=== PATIENT | female | born 1960 | race Caucasian/White ===

== ENCOUNTER 2021-11-14 06:37 | Inpatient (IN) ==
--- NOTE | 2021-11-14 07:18 | Emergency Department Note ---
Impression & Plan Cervical radiculopathy, Neck pain, Paresthesia of right arm, Right arm weakness ED Provider Note CHIEF COMPLAINT: Neck pain HISTORY OF PRESENT ILLNESS: Breanna Zabala is a 61 year old female with history of anxiety, gout, osteopenia and leukemia s/p bone marrow transplant who presents to the Emergency Department for evaluation of increased pain to her right neck radiating down her right arm with associated weakness and numbness/tingling in her right forearm/hand which has been worsening over the past few days. The patient states that she has a known ruptured disc in her cervical spine and was supposed to have a posterior C5-6 anterior cervical discectomy and fusion with Dr. Downs last month, however this was cancelled due to the pandemic. The patient denies new injuries or increased physical activity that may have exacerbated her symptoms but states that it has become unbearable over the past few days. Currently, she rates her discomfort as a 10/10 which has not been relieved after taking Tylenol and ibuprofen. She has also used steroids in the past without relief. The patient was told that if her symptoms become worse, she should come to the Emergency Department for further evaluation with instructions to contact Dr. Downs, which she requests today. She otherwise den ies pain, paresthesias or weakness in her LUE or BLE. No saddle paresthesias or loss of continence of her bowels or bladder. No recent fevers/chills, chest pain, shortness of breath, abdominal pain, nausea, vomiting, diarrhea or urinary symptoms. REVIEW OF SYSTEMS: 10 systems were reviewed and were negative unless otherwise stated in HPI as above PHYSICAL EXAM: VITALS: Vitals are noted on the nurse's note and reviewed by myself. Vital signs stable. General: Resting in bedside chair, no acute distress Head/Eyes: Normocephalic, PERRL, EOMI Neck: Tender to palpation along the right perispinal region radiating into the right shoulder and arm. No specific midline or left sided tenderness. ROM intact but limited secondary to pain Resp: Good inspiratory effort on room air, lung sounds clear bilaterally CV: Regular rate and rhythm, peripheral pulses palpated Back: No midline or perispinal tenderness to the thoracic or lumbar spine Abd: Soft, non-tender MSK: Tender to palpation of the right arm, especially over the forearm and hand. Note numbness/tingling in right forearm/hand, ROM of the RUE limited secondary to pain and wrinkle chaser strength 4/5. No tenderness to palpation of the LUE or BLE, moving these extremities without apparent pain or difficulty Neuro: Awake, alert, interacting and answering questions appropriately Differential diagnosis includes cervical radiculopathy, disc injury, spinal cord injury, musculoskeletal among others were considered EMERGENCY DEPARTMENT COURSE: Physical exam and history were performed. Nursing triage notes, EMR, and medication list were personally reviewed. Patient appears to have increased pain to her right neck radiating down her right arm with associated weakness and numbness/tingling in her right forearm/hand which has been worsening over the past few days. The patient states that she has a known ruptured disc in her cervical spine and was supposed to have a posterior C5-6 anterior cervical discectomy and fusion with Dr. Downs last month, however this was cancelled due to the pandemic. She was instructed to come to the ED if her pain/symptoms became worse with instructions to contact Dr. Downs, hence her visit today. The patient was offered pain medication but declined and stated that she wanted to wait until we were able to contact Dr. Downs. She does not have imaging available to view within our system but she stated that she already had MRIs done prior to her pre-operative consult. I did contact Dr. Downs as requested and he agreed to admit the patient for ongoing management. The patient verbalized understanding and agreement with this treatment plan. The chart was completed utilizing [employer] Speech Voice Recognition Software. Grammatical errors, random word insertions, pronoun errors, and incomplete se ntences are an occasional consequence of this system due to software limitations, ambient noise, and hardware issues. Any formal questions or concerns about the content, text, or information contained within the body of this dictation should be directly addressed to the provider for clarification. Past Med/Surg History Medical History Anxiety Diverticular disease Gout History of leukemia dx 1983. chemo + radiation. h/o bone marrow transplant 1985. Osteopenia PONV (postoperative nausea and vomiting) Managed with IV meds Surgical History History of appendectomy History of biopsy History of bone marrow transplant History of cholecystectomy History of colonoscopy History of removal of Port-a-Cath History of sinus surgery History of tubal ligation History of vascular access device Family History Other No family history of adverse response to anesthesia Social History Smoking Status: Never smoker Second Hand Exposure: No; Hx Alcohol Use: Yes Hx Substance Use: No Preferred Language: Cypriot Communication Ability: Effective Pediatric Psychiatrist Required: No Beliefs That Will Affect Care: None Current Living Situation: Spouse Feels Safe at Home: Yes Assistive Devices: Glasses Allergies Allergies Allergy/AdvReac Type Severity Reaction Status Date / Time amoxicillin Allergy Rash Verified 11/14/21 08:01 Home Meds Home Medications Medication Instructions Recorded Confirmed allopurinol 100 mg tablet 100 mg PO HS 10/19/21 11/14/21 ibandronate 150 mg tablet (Boniva) 150 mg PO MO 10/19/21 11/14/21 venlafaxine 75 mg tablet 75 mg PO HS 10/19/21 11/14/21 cyanocobalamin (vitamin B-12) 1,000 mcg IM MO 11/14/21 11/14/21 1,000 mcg/mL injection solution Results & Data (ED) Vital Signs Vital Signs - 24 hr 11/14/21 06:40 11/14/21 08:00 11/14/21 09:49 Temperature 36.5 C Temperature Source Temporal Artery Scan Pulse Rate 100 H Pulse Rate [Finger] 87 86 Pulse Rhythm [Finger] Regular Respiratory Rate 18 14 14 Respiratory Effort / Characteristics Non-Labored Spontaneous Respiratory Depth Normal Normal Blood Pressure 143/86 H Blood Pressure [Left Arm] 117/79 113/75 Blood Pressure Mean 105 Blood Pressure Mean [Left Arm] 91 87 Pulse Oximetry 95 96 95 Oxygen Delivery Method Room Air Room Air Room Air Sepsis New/Unexplained Change in Mental Status N/A Sepsis Action Taken by Nursing No Action Required Discharge Plan Visit Data Chief Complaint: Neck Injury/Pain Stated Complaint: SEVERE PAIN IN NECK-NUMBNESS DOWN RT ARM,DE LA TORRE ED Provider: Han Carlson ED Midlevel Provider: Chetna Waller Discharge Problem: Cervical radiculopathy, Neck pain, Paresthesia of right arm, Right arm weakness Forms Stand Alone Forms: My [facility] Prescriptions Prescriptions: No Action cyanocobalamin (vitamin B-12) 1,000 mcg/mL solution 1,000 mcg IM MO RF: 0 venlafaxine 75 mg Tablet 75 mg PO HS RF: 0 allopurinol 100 mg Tablet 100 mg PO HS RF: 0 ibandronate [Boniva] 150 mg Tablet 150 mg PO MO RF: 0 Referrals Referrals: Rio Montoya [Primary Care Provider] -
--- NOTE | 2021-11-14 11:39 | History & Physical Report ---
Date of Service November 14, 2021 Assessment & Plan (1) Cervical radiculopathy: Plan: Patient has a known cervical disc herniation at the C5-6 level on the right. This is consistent with her symptoms. Unfortunately she is progressively worsening. Her prior ACDF at the C5-6 level has been canceled due to the pandemic. Due to her recent decline we are going to admit the patient. We will tentatively plan for ACDF at the C5-6 level tomorrow. N.p.o. after midnight. All questions have been answered in detail. History of Present Illness Chief Complaint: Worsening neck and right upper extremity pain and weakness Primary Care Provider: Rio Montoya Is a pleasant 61-year-old female who presents to the emergency room with progressively worsening neck pain rating down her right upper extremity including weakness. She is right-hand dominant. She reports this is a Workmen's Comp. injury stemming from June. She is currently working light duty. Symptoms extend throughout the entire right upper extremity into her thumb and index finger. Left upper extremity is asymptomatic. At home she has been alternating Tylenol and ibuprofen for pain control. Ambulates independently. She has trialed physical therapy which exacerbated her symptoms. She has previously been scheduled for ACDF C5-[address] Downs, but unfortunately this has been canceled due to the pandemic, bed availability. Allergies Allergy/AdvReac Type Severity Reaction Status Date / Time amoxicillin Allergy Rash Verified 11/14/21 08:01 Home Medications Medication Instructions Recorded Confirmed Type allopurinol 100 mg tablet 100 mg PO HS 10/19/21 11/14/21 History ibandronate 150 mg tablet (Boniva) 150 mg PO MO 10/19/21 11/14/21 History venlafaxine 75 mg tablet 75 mg PO HS 10/19/21 11/14/21 History cyanocobalamin (vitamin B-12) 1,000 mcg IM MO 11/14/21 11/14/21 History 1,000 mcg/mL injection solution Past Med/Surg History Medical History Anxiety Diverticular disease Gout History of leukemia dx 1983. chemo + radiation. h/o bone marrow transplant 1985. Osteopenia PONV (postoperative nausea and vomiting) Managed with IV meds Surgical History History of appendectomy History of biopsy History of bone marrow transplant History of cholecystectomy History of colonoscopy History of removal of Port-a-Cath History of sinus surgery History of tubal ligation History of vascular access device Family History Other No family history of adverse response to anesthesia Social History Smoking Status: Never smoker Second Hand Exposure: No; Hx Alcohol Use: Yes Hx Substance Use: No Preferred Language: Turkmen Communication Ability: Effective National Flatbed Truck Driver Required: No Beliefs That Will Affect Care: None Current Living Situation: Spouse Feels Safe at Home: Yes Assistive Devices: Glasses Review of Systems Review of Systems: All systems reviewed & are unremarkable except as noted in HPI & below Physical Exam Physical Exam: Patient seen in the emergency room room a 10 She sitting in a chair in no acute distress Cooperative with exam Alert and oriented x3 Seen in conjunction with her She ambulates with an independent steady gait No evidence of ankle clonus bilaterally No evidence of upper motor neuron signs She has positive Spurling's to the right Negative Lhermitte's Motor testing is a 3+ to 4/5 right hand cutter strength, wrist flexor, bicep and deltoid. Strength is intact left upper extremity finger intrinsics, wrist extensors, wrist flexors, biceps, triceps, deltoid Constitutional: WD/WN, vitals as above Eyes: normal visual angelo by confrontation ENMT: external ear and nose normal, oropharynx normal Neck: normal visual inspection Respiratory: normal respiratory effort Cardiovascular: Extremities: normal capillary refill Chest (Breasts): Chest: normal inspection of chest Gastrointestinal (Abdomen): Inspection/Auscultation: abdomen normal to inspection Musculoskeletal: Spine: + limited cervical ROM and + pain with cervical ROM Extremities: extremities normal to inspection Gait: normal gait Skin: no rashes, warm and dry Neurologic: normal touch/pain/proprioception, moves all extremities and + focal motor deficit Psychiatric: A+Ox3, euthymic affect Apperance: appropriately dressed and appropriately groomed Eye Contact: good eye contact Results & Data Results & Data ([facility]) Vital Signs (Past 12 Hours) Vital Signs Temp Pulse Pulse Resp BP BP Pulse Ox 11/14/21 09:49 86 14 113/75 95 11/14/21 08:00 87 14 117/79 96 11/14/21 06:40 36.5 C 100 H 18 143/86 H 95 Code Status & VTE Plan VTE Prophylaxis Plan VTE Prophylaxis will be ordered: Yes
[2021-11-14] MEDS ORDERED: HYDROmorphone INJ 0.5 MG/0.5 ML SYR IV STA (12:09)
[2021-11-14] MEDS ORDERED: HYDROmorphone INJ 0.5 MG/0.5 ML SYR IV PRN (13:13)
[2021-11-14] MEDS ORDERED: traMADol HCL 50 MG TABLET PO PRN (13:13)
[2021-11-14] MEDS ORDERED: ACETAMINOPHEN 500 MG TAB PO PRN (13:13)
[2021-11-14] MEDS ORDERED: HYDROmorphone INJ 1 MG/ML SYRINGE IV PRN (13:13)
[2021-11-14] MEDS ORDERED: ACETAMINOPHEN 1,000 MG/100 ML VIAL IV PRN (13:13)
[2021-11-14] MEDS ORDERED: NALOXONE HCL 0.4 MG/1 ML VIAL/CARP IV PRN (13:13)
[2021-11-14] MEDS ORDERED: ONDANSETRON INJ 2 MG/ML 2 ML VIAL IV PRN (13:13)
[2021-11-14] MEDS ORDERED: PROMETHAZINE HCL 12.5 MG in SODIUM CHLORIDE 0.9% 50 ML IV PRN (13:13)
[2021-11-14] MEDS ORDERED: LORazepam 0.5 MG/1 ML VIAL IV PRN (13:13)
[2021-11-14] MEDS ORDERED: oxyCODONE HCL IR 5 MG TAB (IMMEDIATE RELEASE) PO PRN (13:13)
[2021-11-14] MEDS ORDERED: LORazepam 0.5 MG TAB PO PRN (13:13)
[2021-11-14] MEDS ORDERED: ONDANSETRON 4 MG OD TAB PO PRN (13:13)
[2021-11-14] MEDS ORDERED: METOCLOPRAMIDE HCL INJ 5 MG/ML 2 ML VIAL IV PRN (13:13)
[2021-11-14] MEDS: LACTATED RINGER'S 1,000 ML IV SCH (13:27)
--- NOTE | 2021-11-14 14:58 | Hospitalist Consultation ---
Date of Consultation November 14, 2021 Assessment & Plan (1) Cervical radiculopathy: - patient with known ruptured cervical disc (C5-C6) with right hands paresthesias and weakness. She is right hand dominant and this is now affecting her ability to perform ADL's - plan is for surgical intervention tomorrow - in interim, recommend pain mgmt and perioperative abx therapy per primary team along - post-operatively, recommend: adequate pain control, I.S, PT/OT - preop labs review from 10/24 (mild hyperkalemia but otherwise normal metabolic panel, CBC, coag studies and negative covid test). Repeat CBC/CMP today - EKG/CXR reviewed (done 10/24) and unremarkable. 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 Medellin (my attending). Further orders as warranted. Thank you for allowing us to participate in the care of this patient History of Present Illness Reason for Consultation: Medical management Requesting Physician: Dr. Kristopher Downs Attending Physician: Kristopher Downs, DO History of Present Illness Mrs. Zabala is a 61-year-old white female with an underlying past medical history of mixed anxiety with depression, gouty arthritis, and leukemia in her early 20s s/p stem cell transplant. Has been in remission since. Has a known ruptured disc in her cervical spine for which she is seeing Dr. Downs for as an outpatient. Was to have surgical intervention last month that was canceled on account of the pandemic. In the interim, she has had increasing pain now with numbness down her right lower extremity and associated weakness. 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 In addition, she is unable to hold a coffee cup as she is right-hand dominant. Presented to the ED today given increased pain and decreased ability to perform ADLs. Subsequently hospitalized with plan for surgical intervention in the a.m. Did undergo preoperative work-up on 10/24. EKG reviewed showing normal sinus rhythm with a rate of 82 bpm. Normal axis. Normal EKG. CXR done at that time showing no acute cardiopulmonary process. Labs done at that time did show mild hyperkalemia of 5.2 but the rest of her metabolic panel was essentially unremarkable. CBC within normal limits. Coag panel normal. COVID test done today: negative. Patient denies a history of postoperative complications in the past. She denies a personal and/or family history of DVT, PE, blood dyscrasia. Has no known cardiac disease and is able to walk up and down steps and remains fairly active without CP, SOB, dizziness/lightheadedness. Allergies Allergy/AdvReac Type Severity Reaction Status Date / Time amoxicillin Allergy Rash Verified 11/14/21 08:01 Home Medications Medication Instructions Recorded Confirmed Type allopurinol 100 mg tablet 100 mg PO HS 10/19/21 11/14/21 History ibandronate 150 mg tablet (Boniva) 150 mg PO MO 10/19/21 11/14/21 History cyanocobalamin (vitamin B-12) 1,000 mcg IM MO 11/14/21 11/14/21 History 1,000 mcg/mL injection solution venlafaxine 75 mg capsule,extended 75 mg PO HS 11/14/21 11/14/21 History release 24 hr (Effexor XR) Patient History Medical History (Updated 11/14/21 @ 15:04 by Myla See PA-C) Anxiety Diverticular disease Gout History of leukemia dx 1983. chemo + radiation. h/o bone marrow transplant 1985. Osteopenia PONV (postoperative nausea and vomiting) Managed with IV meds Surgical History History of appendectomy History of biopsy History of bone marrow transplant History of cholecystectomy History of colonoscopy History of removal of Port-a-Cath History of sinus surgery History of tubal ligation History of vascular access device Family History Other No family history of adverse response to anesthesia Social History Smoking Status: Never smoker Second Hand Exposure: No; Hx Alcohol Use: No Hx Substance Use: No Preferred Language: Bengali Communication Ability: Effective Budget And Policy Analyst Required: No Beliefs That Will Affect Care: None Current Living Situation: Spouse Feels Safe at Home: Yes Assistive Devices: Glasses Review of Systems Review of Systems: All systems reviewed and are unremarkable except as noted in HPI and below Denies fevers, chills, headache, nasal congestion, sore throat, cough, chest pain, shortness of breath, palpitations, orthopnea, PND, abdominal pain, nausea, vomiting, diarrhea, constipation, dysuria, hematuria, frequency, back pain, joint pain or swelling, easy bruising or bleeding, skin lesions or rashes. Physical Exam Physical Exam: General: Resting comfortably in her hospital bed. Appears younger than stated age. NAD. HEENT: Head is AT/NC buccal mucosa is moist and pink Neck: No JVD. Negative hepatojugular reflex Cardiac: RRR without M/G/R Lungs: CTA without W/R/R Abdomen: Normoactive X4. Soft and nontender in all quadrants. Extremities: No peripheral clubbing cyanosis or edema. 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 Neuro: A&O X4 cranial nerves II through XII are grossly intact no focal neuro deficits Skin: No obvious skin lesions or rashes Psych: Appropriate affect pleasant and cooperative Results & Data Results & Data ([facility]) Vital Signs (Past 12 Hours) Vital Signs Temp Pulse Pulse Resp BP BP Pulse Ox 11/14/21 13:00 36.7 C 87 16 151/87 H 92 11/14/21 11:52 88 14 114/67 96 11/14/21 09:49 86 14 113/75 95 11/14/21 08:00 87 14 117/79 96 11/14/21 06:40 36.5 C 100 H 18 143/86 H 95 Laboratory Results reviewed labs and imaging from 10/24 PG Care Time/CCT Total # of Minutes Spent Total Time Spent with Patient: Total time spent is greater than 50% in coordination of care (as documented) at patient's floor/unit and/or counseling patient: Coding Level of Care Code 95101 Inpt Consult Level 4 Diagnoses Cervical radiculopathy M54.12 Anxiety and depression F41.9; F32.A Gout M10.9 History of leukemia Z85.6
[2021-11-14 15:38] LABS: Basophils # (auto) 0.04 K/uL (0-0.2); Basophils % (auto) 0.5 %; Eosinophils # (auto) 0.17 K/uL (0-0.5); Hematocrit (blood only) 44.3 % (37-47); Hemoglobin 14.8 g/dL (12.0-16.0); Immature Granulocytes # (auto) 0.01 K/uL (0.00-0.02); Immature Granulocytes % (auto) 0.1 %; Lymphocytes # (auto) 3.36 K/uL (1.2-3.4); Lymphocytes % (auto) 39.8 %; Mean Corpuscular Hemoglobin 30.8 pg (25-34); Mean Corpuscular Hgb Conc 33.4 g/dL (32-36); Mean Corpuscular Volume 92.1 fL (80-100); Mean Platelet Volume 9.6 fL (7.4-10.4); Monocytes # (auto) 0.53 K/uL (0.11-0.59); Monocytes % (auto) 6.3 %; Neutrophils # (auto) 4.33 K/uL (1.4-6.5); Neutrophils % (auto) 51.3 %; Platelet Count 243 K/uL (130-400); RDW Coefficient of Variation 14.7 % (11.5-14.5); RDW Standard Deviation 50.2 fL (36.4-46.3); Red Blood Count 4.81 M/uL (4.2-5.4); White Blood Count 8.44 K/uL (4.8-10.8)
[2021-11-14 16:03] LABS: Albumin Globulin Ratio 1.7 (0.9-2); Albumin Level 4.7 gm/dl (3.4-5.0); BUN Creatinine Ratio 24.4 (10-20); Bilirubin,Total 0.2 mg/dl (0.2-1.0); Calcium 9.9 mg/dl (8.5-10.1); Creatinine Clr Calc Pharmacy 68.5 ml/min; Est GFR (African American) 85.7 ml/min; Est GFR (Non-African American) 73.9 ml/min; Globulin 2.8 gm/dl (2.5-4.0); Potassium 4.3 mmol/L (3.5-5.1); Total Protein 7.5 gm/dl (6.0-8.3)
--- NOTE | 2021-11-14 18:29 | Anesthesiology Consultation ---
Date of Service November 14, 2021 Assessment & Plan (1) Encounter for pre-operative examination: Chart Review Chart Review: automobile brakes bonder initiated History Surgery Operation Date: 11/15/21 07:45 Proposed Procedures p C5-C6 Anterior Cervical Discectomy Fusion - Kristopher Downs DO Height/Weight Height: 5 ft 7 in Weight: 72.1 kg Allergies Allergy/AdvReac Type Severity Reaction Status Date / Time amoxicillin Allergy Rash Verified 11/14/21 08:01 Medications Home Medications Medication Instructions Recorded Confirmed Last Taken allopurinol 100 mg tablet 100 mg PO HS 10/19/21 11/14/21 11/13/21 ibandronate 150 mg tablet (Boniva) 150 mg PO MO 10/19/21 11/14/21 10/28/21 cyanocobalamin (vitamin B-12) 1,000 mcg IM MO 11/14/21 11/14/21 10/28/21 1,000 mcg/mL injection solution venlafaxine 75 mg capsule,extended 75 mg PO HS 11/14/21 11/14/21 Unknown release 24 hr (Effexor XR) Active Medications Generic Name Dose Route Start Last Admin Trade Name Freq PRN Reason Stop Dose Admin Hydromorphone HCl 0.5 mg 11/14/21 13:13 11/14/21 17:37 Hydromorphone Inj 0.5 Mg/0.5 Ml Syr IV 11/28/21 13:12 0.5 mg Q3H PRN Administration MOD pain (scale 4-6) & Pre PT Lactated Ringer's 1,000 mls @ 75 mls/hr 11/14/21 13:13 11/14/21 13:27 Lr IV 12/14/21 13:12 75 mls/hr .[id number] TAMELA Administration Past Medical History Medical History Anxiety Diverticular disease Gout History of leukemia dx 1983. chemo + radiation. h/o bone marrow transplant 1985. Osteopenia PONV (postoperative nausea and vomiting) Managed with IV meds Past Family History Family History Other No family history of adverse response to anesthesia Past Surgical History Surgical History History of appendectomy History of biopsy History of bone marrow transplant History of cholecystectomy History of colonoscopy History of removal of Port-a-Cath History of sinus surgery History of tubal ligation History of vascular access device Social History Smoking Status: Never smoker Hx Alcohol Use: No alcohol intake frequency: holidays/special occasions only Hx Substance Use: No substance use type: does not use Physical Exam Vital Signs Last Vital Signs Temp 98.1 F 11/14/21 15:56 Pulse 83 11/14/21 15:56 Resp 14 11/14/21 15:56 BP 122/76 11/14/21 15:56 Pulse Ox 96 11/14/21 15:56 Testing Laboratory Results 11/14/21 15:22 11/14/21 15:22 Blood Type A Positive 11/14/21 15:22 Antibody Screen NEGATIVE 11/14/21 15:22 Laboratory Tests 11/14/21 11:23 SARS-CoV-2, RNA, NAAT NEGATIVE Electrocardiogram Date: 10/24/21 Findings: + NSR @ (83 bpm) Chest X-Ray Date: 10/24/21 Findings: + NAD Echocardiogram Date: 04/16/19 EF 60% LV size, wall thickness and systolic function are normal Mild TR Mild AI Mild MR
[2021-11-14] MEDS: allopurinoL 100 MG TAB PO SCH (21:46)
[2021-11-14] MEDS: VENLAFAXINE HCL XR 75 MG CAPXR PO SCH (21:46)
[2021-11-15] MEDS: LACTATED RINGER'S 1,000 ML IV SCH ×4 (02:28→21:52)
[2021-11-15] MEDS ORDERED: ceFAZolin 2000MG 2,000 MG/15 ML SYR IV SCH (06:00)
[2021-11-15] MEDS ORDERED: SUGAMMADEX SODIUM 200 MG/2 ML VIAL IV ONE (06:40)
[2021-11-15 06:56] LABS: Basophils # (auto) 0.03 K/uL (0-0.2); Basophils % (auto) 0.4 %; Eosinophils # (auto) 0.22 K/uL (0-0.5); Eosinophils % (auto) 3.1 %; Hematocrit (blood only) 41.9 % (37-47); Hemoglobin 13.8 g/dL (12.0-16.0); Immature Granulocytes # (auto) 0.01 K/uL (0.00-0.02); Immature Granulocytes % (auto) 0.1 %; Lymphocytes # (auto) 2.64 K/uL (1.2-3.4); Lymphocytes % (auto) 37.6 %; Mean Corpuscular Hgb Conc 32.9 g/dL (32-36); Mean Corpuscular Volume 91.1 fL (80-100); Monocytes # (auto) 0.47 K/uL (0.11-0.59); Monocytes % (auto) 6.7 %; Neutrophils # (auto) 3.66 K/uL (1.4-6.5); Neutrophils % (auto) 52.1 %; Platelet Count 235 K/uL (130-400); RDW Coefficient of Variation 14.5 % (11.5-14.5); RDW Standard Deviation 48.8 fL (36.4-46.3); White Blood Count 7.03 K/uL (4.8-10.8)
[2021-11-15 07:24] LABS: BUN Creatinine Ratio 24.4 (10-20); Calcium 8.9 mg/dl (8.5-10.1); Creatinine Clr Calc Pharmacy 68.5 ml/min; Est GFR (African American) 85.7 ml/min; Est GFR (Non-African American) 73.9 ml/min; Potassium 4.3 mmol/L (3.5-5.1)
[2021-11-15] MEDS ORDERED: ceFAZolin 330 MG/ML 1 GM VIAL ONE (07:34)
--- NOTE | 2021-11-15 07:40 | History & Physical Bridge Note ---
Date of Service November 15, 2021 History & Physical Bridge Note I have examined the patient, reviewed the History & Physical and in the interval since the performance of the History & Physical I have noted the following changes of clinical significance: no changes noted Anterior cervical discectomy and fusion C5-C6
[2021-11-15] MEDS ORDERED: CLINDAMYCIN 600 MG/54 ML D5W IV ONE (07:44)
[2021-11-15] MEDS ORDERED: ONDANSETRON INJ 2 MG/ML 2 ML VIAL IV PRN ×2 (07:47→11:16)
[2021-11-15] MEDS ORDERED: ATROPINE SULFATE 0.1 MG/ML 10ML SYR IV PRN (07:47)
[2021-11-15] MEDS ORDERED: SCOPOLAMINE 1 MG TDSY TD ONE ×2 (07:47)
[2021-11-15] MEDS ORDERED: ePHEDrine sulfate 50 MG/ML AMP IV PRN (07:47)
[2021-11-15] MEDS ORDERED: FLOSEAL HEMOSTATIC MATRIX 10ML TOP ONE (08:30)
--- NOTE | 2021-11-15 09:03 | Operative Report ---
Post Operative Report Pre & Post Diagnosis Operation Date: 11/15/21 07:45 Pre-Op Diagnosis: Cervical radiculopathy Post-Op Diagnosis: Cervical radiculopathy I identified the patient and participated in the time-out.: Yes Procedure Operation Date: 11/15/21 07:45 Actual Procedures #1 anterior cervical discectomy with bilateral foraminotomies C5-C6. #2 ante rior cervical arthrodesis C5-C6. #3 placement of 9 mm spiral cage filled with I factor C5-C6. #4 application of rebolledo plate and screws across C5-C6. Surgeon Kristopher Downs, DO Transition Mgr Neela Acosta Estimated Blood Loss 10 Findings Consistent with Post-Op Diagnosis Specimens None Indications This is a 61-year-old female who presents with above-mentioned diagnosis after f ailing course of nonoperative care and struggling with worsening radiculopathy she is here for surgical invention. Description of Procedure Patient was met with identified informed consent obtained. Patient was then taken to the operative suite underwent ablation placed in a supine position the George table head Dolan beater head. All bony prominences well-padded eyes inspected to ensure no external pressure placed upon them. This point the anterior cervical spine was prepped and draped in a sterile fashion. With the assistance of fluoroscopy identified the C5-C6 disc base and a transverse incision was placed along the right anterior aspect of the cervical spine overlying this region. Blunt dissection with the assistance of bipolar electrocautery was performed down to and exposing the anterior cervical spine from C5-C6 and self-retaining retractors placed. I then performed a complete discectomy of C5-C6 out to the uncovertebral's bilaterally. Perry distracting pins were utilized to assist in visualization. I removed all posterior annular fibers longitudinal ligament bilateral foraminotomies performed. The endplates were then burred to subcortical bleeding bone and a 9 mm spiral cage filled with I factor tapped in position. Distracting apparatus was removed and a 5 complete screws applied with the assistance of fluoroscopy. The incision was then copiously irrigated explored to ensure no damage to surrounding structures or remaining bleeding. 10 round DIOGENES drain inserted. The incision was then closed with 2 Vicryl in the fascia and 4 Monocryl for final skin closure. Steri-Strip sterile dressing was placed. Patient waken taken PACU stable condition. Please note spinal cord monitoring was utilized at the procedure no changes noted. Lastly Neela Acosta was present at the entire surgery and while the patient positioning complex portions of the surgery and final skin closure. I attest to the content of the Intraoperative Record and any orders documented therein. Any exceptions are noted below.
[2021-11-15] MEDS: fentaNYL citrate 100 MCG/2 ML VIAL IV PRN ×2 (09:29→09:35)
[2021-11-15] MEDS: HYDROmorphone INJ 1 MG/ML SYRINGE IV PRN ×5 (10:03→10:35)
--- NOTE | 2021-11-15 10:38 | Anesthesiology Progress Note ---
Date of Service November 15, 2021 Anesthesia Post Procedure Vital Signs Vital Signs: Temp Pulse Resp BP Pulse Ox 11/15/21 10:30 94 H 12 122/74 95 11/15/21 10:20 96 H 14 126/80 95 11/15/21 10:10 95 H 15 121/75 95 11/15/21 10:00 96 H 13 119/75 95 11/15/21 09:50 94 H 12 118/76 96 11/15/21 09:40 93 H 14 119/74 97 11/15/21 09:30 98 H 12 131/75 97 11/15/21 09:20 101 H 14 143/87 H 95 11/15/21 09:13 105 H 15 147/89 H 93 11/15/21 07:23 97.9 F 86 18 134/76 95 11/14/21 22:28 97.7 F 71 16 112/72 94 11/14/21 15:56 98.1 F 83 14 122/76 96 11/14/21 13:00 98.1 F 87 16 151/87 H 92 11/14/21 11:52 88 14 114/67 96 Pain Intensity Right Neck: Pain Intensity: 5 Transfer of Care Handoff Completed per policy Notes Mental Status: alert / awake / arousable and participated in evaluation Patient Amnestic to Procedure: Yes Nausea / Vomiting: adequately controlled Pain: adequately controlled Airway Patency, RR, SpO2: stable & adequate BP & HR: stable & adequate Hydration State: stable & adequate Anesthetic Complications: no major complications apparent and Pt Satisfied with anesthetic care
[2021-11-15] MEDS ORDERED: MAGNESIUM HYDROXIDE SUSP 30 ML UDC PO PRN (11:16)
[2021-11-15] MEDS ORDERED: HYDROmorphone INJ 1 MG/ML SYRINGE IV PRN (11:16)
[2021-11-15] MEDS ORDERED: bisacodyL 10 MG SUPP PR PRN (11:16)
[2021-11-15] MEDS ORDERED: diphenhydrAMINE Capsule 25 MG CAP PO PRN (11:16)
[2021-11-15] MEDS ORDERED: DO NOT ADMINISTER PNEUMOCOCCAL VACCINE PRN (11:16)
[2021-11-15] MEDS ORDERED: ONDANSETRON 4 MG OD TAB PO PRN (11:16)
[2021-11-15] MEDS ORDERED: ALUMINUM/MAGNESIUM SUSP 30 ML UDC PO PRN (11:16)
[2021-11-15] MEDS ORDERED: hydrOXYzine HCl 25 MG TAB PO PRN (11:16)
[2021-11-15] MEDS ORDERED: SOD PHOSPHATE/SOD BIPHOSPHATE ENEMA 132 ML BTL PR PRN (11:16)
[2021-11-15] MEDS ORDERED: traMADol HCL 50 MG TABLET PO PRN (11:16)
[2021-11-15] MEDS ORDERED: dexAMETHasone 8 MG in SYRINGE 0 ML IV PRN (11:16)
[2021-11-15] MEDS ORDERED: FAMOTIDINE 20 MG TAB PO PRN (11:16)
[2021-11-15] MEDS ORDERED: LORazepam 0.5 MG/1 ML VIAL IV PRN (11:16)
[2021-11-15] MEDS ORDERED: ACETAMINOPHEN 1,000 MG/100 ML VIAL IV PRN (11:16)
[2021-11-15] MEDS ORDERED: ACETAMINOPHEN 500 MG TAB PO PRN (11:16)
[2021-11-15] MEDS ORDERED: METOCLOPRAMIDE HCL INJ 5 MG/ML 2 ML VIAL IV PRN (11:16)
[2021-11-15] MEDS ORDERED: RACEPINEPHRINE 2.25% NEBU SOLN 0.5 ML VIAL INH PRN (11:16)
[2021-11-15] MEDS ORDERED: PROMETHAZINE HCL 12.5 MG in SODIUM CHLORIDE 0.9% 50 ML IV PRN (11:16)
[2021-11-15] MEDS ORDERED: LORazepam 0.5 MG TAB PO PRN (11:16)
[2021-11-15] MEDS ORDERED: DO NOT ADMINISTER FLU VACCINE PRN (11:16)
[2021-11-15] MEDS ORDERED: NALOXONE HCL 0.4 MG/1 ML VIAL/CARP IV PRN (11:16)
[2021-11-15] MEDS ORDERED: HYDROmorphone INJ 0.5 MG/0.5 ML SYR IV PRN (11:16)
[2021-11-15] MEDS: oxyCODONE HCL IR 5 MG TAB (IMMEDIATE RELEASE) PO PRN ×3 (13:28→22:55)
--- NOTE | 2021-11-15 13:39 | Fluoroscopy Report ---
FL cervical 2-3V CLINICAL HISTORY: ACDF C5-C6 COMPARISON STUDY: None. FLUOROSCOPY TIME: 19 seconds. FINDINGS: 3 fluoroscopic spot images of the cervical spine demonstrate anterior cervical discectomy a nd fusion at C5-C6. The hardware appears intact. A surgical sponge is seen anterior to the cholecyste ctomy site. IMPRESSION: Fluoroscopic assistance provided for C5-C6 ACDF. ACT 112: Negative or not required by law. Electronically signed by: Matt Payne M.D. 11/15/2021 1:37 PM
--- NOTE | 2021-11-15 14:48 | Hospitalist Progress Note ---
Date of Service November 15, 2021 Assessment & Plan (1) Cervical radiculopathy: Plan: - patient with known ruptured cervical disc (C5-C6) with right hands paresthesias and weakness. She is right hand dominant and this is now affecting her ability to perform ADL's - in interim, recommend pain mgmt and perioperative abx therapy per primary team along - post-operatively, recommend: adequate pain control, I.S, PT/OT - preop labs review from 10/24 (mild hyperkalemia but otherwise normal metabolic panel, CBC, coag studies and negative covid test). Repeat CBC/CMP today - EKG/CXR reviewed (done 10/24) and unremarkable. No need to repeat this -> Doing well after surgery. Plan for discharge when surgically ready. 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 Please call or [facility] Gaur[facility] Medellin any questions or concerns. Thank you for letting us assist in the care of this patient! Admission and Anticipated Discharge Date Admission Date: November 14, 2021 Subjective Seen after operation. Doing well. Minimal pain. Reports no fevers/chills, chest pain, shortness of breath, abdominal pain, nausea, or vomiting. Physical Exam Constitutional: WD/WN, vitals as above Eyes: EOM intact bilaterally; no conjunctival abnormality ENMT: external ear and nose normal, oropharynx normal Neck: trachea midline, no thyromegaly trachea midline; + abnormal visual inspection (Bandages with drain; scant drainage) Respiratory: normal respiratory effort, lungs clear to auscultation no respiratory distress Cardiovascular: RRR, no murmur, no edema Gastrointestinal (Abdomen): Inspection/Auscultation: abdomen normal to inspection; abdomen not distended Musculoskeletal: no cyanosis or clubbing, extremities motor strength 5/5 Skin: no rashes, warm and dry Neurologic: moves all extremities and awake Psychiatric: Orientation: alert, oriented to person and cooperative Results & Data Results & Data ([facility]) Vital Signs (Past 12 Hours) Vital Signs Temp Pulse Resp BP Pulse Ox 11/15/21 14:04 81 15 96 11/15/21 11:32 90 15 97 11/15/21 11:00 36.6 C 98 H 14 131/80 95 11/15/21 10:50 95 H 14 131/83 97 11/15/21 10:40 36.3 C L 96 H 14 115/75 95 11/15/21 10:30 94 H 12 122/74 95 11/15/21 10:20 96 H 14 126/80 95 11/15/21 10:10 95 H 15 121/75 95 11/15/21 10:00 96 H 13 119/75 95 11/15/21 09:50 94 H 12 118/76 96 11/15/21 09:40 93 H 14 119/74 97 11/15/21 09:30 98 H 12 131/75 97 11/15/21 09:20 101 H 14 143/87 H 95 11/15/21 09:13 105 H 15 147/89 H 93 11/15/21 07:23 36.6 C 86 18 134/76 95 PG Care Time/CCT Total # of Minutes Spent Total Time Spent with Patient: Total time spent is greater than 50% in coordination of care (as documented) at patient's floor/unit and/or counseling patient: Coding Level of Care Code 77835 Subseq Hosp Care Lvl 2 Diagnoses Cervical radiculopathy M54.12 Anxiety and depression F41.9; F32.A Gout M10.9 History of leukemia Z85.6
[2021-11-15] MEDS: dexAMETHasone 6 MG in SYRINGE 0 ML IV SCH ×2 (15:44→20:14)
[2021-11-15] MEDS: CHECK SCOPOLAMINE PATCH PLACEMENT SCH ×2 (16:19→22:53)
[2021-11-15] MEDS: CLINDAMYCIN 600 MG in DEXTROSE 5% 50 ML IV SCH ×2 (16:43→22:56)
[2021-11-15] MEDS: allopurinoL 100 MG TAB PO SCH (20:14)
[2021-11-15] MEDS: VENLAFAXINE HCL XR 75 MG CAPXR PO SCH (20:14)
[2021-11-15] MEDS ORDERED: DOCUSATE SODIUM/SENNA 50/8.6MG TAB PO SCH (21:00)
[2021-11-16] MEDS: dexAMETHasone 6 MG in SYRINGE 0 ML IV SCH (03:48)
[2021-11-16] MEDS: oxyCODONE HCL IR 5 MG TAB (IMMEDIATE RELEASE) PO PRN ×2 (03:53→10:03)
[2021-11-16] MEDS ORDERED: POLYETHYLENE (MIRALAX) 17 GM PACK PO SCH (06:00)
[2021-11-16 06:24] VITALS: BP 138/76; TEMP 97.9
[2021-11-16] MEDS: CHECK SCOPOLAMINE PATCH PLACEMENT SCH (08:38)
--- NOTE | 2021-11-16 08:46 | Discharge Summary ---
Date of Service November 16, 2021 Admission HPI Per Admitting Provider Is a pleasant 61-year-old female who presents to the emergency room with progressively worsening neck pain rating down her right upper extremity including weakness. She is right-hand dominant. She reports this is a Workmen's Comp. injury stemming from June. She is currently working light duty. Symptoms extend throughout the entire right upper extremity into her thumb and index finger. Left upper extremity is asymptomatic. At home she has been alternating Tylenol and ibuprofen for pain control. Ambulates independently. She has trialed physical therapy which exacerbated her symptoms. She has previously been scheduled for ACDF C5-[address] Downs, but unfortunately this has been canceled due to the pandemic, bed availability. Principal Diagnosis Cervical disc herniation with radiculopathy Discharge Data Allergies Allergy/AdvReac Type Severity Reaction Status Date / Time amoxicillin Allergy Intermediate Rash Verified 11/15/21 07:48 Consultations 11/14/21 10:40 ED Decision to Admit Stat 11/14/21 13:30 Consult Hospitalist Routine Procedures Performed Operation Date: 11/15/21 07:45 Actual Procedures p C5-C6 Anterior Cervical Discectomy Fusion(Not Applicable) - Kristopher Downs, Ordered Studies 11/15/21 07:45 FL cervical 2-3V Routine Hospital Course (1) Cervical radiculopathy: Patient was admitted with significant right arm pain and weakness underwent anterior cervical discectomy fusion the following day tolerated well second orthopedic for postop labor postop day 1 she is swallowing well no hoarseness. Excellent strength testing. Marked improvement of pain. DIOGENES drain decreasing appropriately. Subsequently discharged home. Discharge orders instructions from the chart for further review. Total Time Total Time Spent Total Time Spent (In Minutes): 20 minutes Discharge Plan Discharge Items Patient Disposition: Home - Self-Care Reason For Visit: ARM PAIN AND WEAKNESS Discharge Diagnosis: Cervical disc condition with radiculopathy Activity: As commented below Non-emergency contact: Primary Care Provider Call non-emergency contact if: you have any medication questions Follow-up/Referrals: Rio Montoya [Primary Care Provider] - Diet: Regular Addtl Attending Provider Instructions: ACTIVITY RECOMMENDATIONS: SELF CARE INSTRUCTIONS AFTER CERVICAL FUSIONS 1. No smoking. Smoking drastically decreases the chance of a solid fusion. 2. No bending, lifting more than 5 pounds, or twisting (roll like a log when turning in bed). 3. You may shower 3 days after surgery. Thoroughly dry wound. Do not soak in the tub. 4. Cervical collar: Must be worn at all times including sleeping. You may remove the brace only to bath, eat and if you are sitting in a recliner. 5. Please walk as much as you can for exercise. Gradually increase the distance that you walk as your endurance increases. SPECIAL CARE INSTRUCTIONS: VERY IMPORTANT TO READ AND REVIEW A. Do not take any anti-inflammatory medications (i.e. Indocin, Advil, Aspirin, Naprosyn, Aleve, Motrin, etc.) as these may inhibit the chance of a solid fusion. Tylenol is okay to take. B. Your surgical incision has been closed with a cosmetic suture under the skin that will dissolve in about 6 weeks. In 14 days, you can use a pair of clean scissors and cut the suture that is left outside of the skin at the ends of your incision. C. Complications are uncommon, but please contact us if you have any signs or symptoms of: 1. wound infection (fever higher than 102.5 degrees F, redness, separation of wound, drainage, or increasing pain from the incision) 2. blood clots in legs (pain, swelling, redness and warmth in legs) 3. urinary tract infection (fever higher than 102.5 degrees, burning upon urination or increased frequency of urination) 4. nerve problems (inability to walk on your toes or heels, numbness, loss of bowel or bladder control) 5. any other symptoms that concern you. D. Please call the office at if you have any concerns or questions about your operation or recovery. MANAGING PAIN AFTER SPINAL SURGERY 1. Narcotic medication is intended for short-term use and will be provided for surgical pain. Surgical pain usually lasts for a period of 4-6 weeks. Narcotic medication includes Percocet, Vicodin, Darvocet, Tylenol #3 or Lortab. 2. Longer-term pain is more appropriately treated with non-narcotic medication such as Tylenol ES. 3. Muscle spasm is not appropriately treated with narcotics. Muscle relaxers such as Soma, Flexeril or Skelaxin can be used along with Tylenol ES. 4. Remember that we all live with some "aches and pains". This is not unusual or uncommon after an injury or as we get older. 5. We will provide appropriate medication within the normal guidelines of their prescribed use. We will also be very cautious and aware of potential abuse and extended duration of patients' medication needs. 6. Please allow 2-3 days to process refills. Prescriptions will not be mailed but must be picked up at the office. FOLLOW UP VISIT: Keep your scheduled follow-up appointment. Any questions, please call the office at . Pending Studies at Discharge: No Stand-Alone Forms: [facility], Smoking Cessation Medications and DC Order Prescriptions: New tramadol 50 mg tablet 50 mg PO Q6H PRN (Reason: pain, moderate) Qty: 20 RF: 0 oxycodone 5 mg tablet 5 mg PO Q6H PRN (Reason: pain, severe) Qty: 20 RF: 0 Continued cyanocobalamin (vitamin B-12) 1,000 mcg/mL solution 1,000 mcg IM MO RF: 0 venlafaxine [Effexor XR] 75 mg capsule,extended release 24hr 75 mg PO HS RF: 0 allopurinol 100 mg Tablet 100 mg PO HS RF: 0 ibandronate [Boniva] 150 mg Tablet 150 mg PO MO RF: 0 Discharge Orders: Discharge Order (Routine); Ordered 11/16/21 Ordered By: Kristopher Downs Admission Data Admit Date/Time: 11/14/21 11:13 Attending Provider: Kristopher Downs Admit Provider: Kristopher Downs Primary Care Provider: Rio Montoya Other Providers: Kristopher Downs ; Celestine Mari ; Randee Sarmiento ; Dirk Porter ; Luis Anderson Jeffrey W. ; Nelida Pantoja V. ; Danay Melendez ; Luan Duckworth ; Sky Tyler ; Alexis Joseph ; Phoenix Childers ; Alvino Espinoza ; Alex Aragon ; Winsome Robles ; Deneen Charles ; Yissel Cote ; Erik Vazquez ; Myla Webb ; Kendra Zuñiga ; Virginia Elaine ; Gaurav Medellin ; Sameer Brian ; Sarah Yanes ; Lurdes Plummer ; Mino Helm ; Danay Gomez ; Jeffry Cortes ; Celia Escobar ; Jose Gordillo ; Luan Dey ; Kurt Lao ; Desirae Degroot ; Tabatha Keene ; Tod Craig ; Myla See ; Celestine Sesay ; Kenton Damon ; Naomi Cook ; Sirisha Paige ; Mukund Addison.
[2021-11-16 10:51] VITALS: PULSE 97; O2SAT 93
[2021-11-20] MEDS ORDERED: CYANOCOBALAMIN 1000 MCG/ML VIAL IM SCH (11:07)
== END 2021-11-16 12:55 | disposition home or self-care (01) | DRG 472 ==
LOC: ED 06:37 → 3E 11:13